=== PATIENT | male | born 1980 | race Caucasian/White ===

== ENCOUNTER 2021-10-17 06:43 | Day surgery (SDC) | payer BC ==
[~2021-10-17 06:43] MED LIST: Lactated Ringers 1,000 ML IV SCH
[2021-10-17] MEDS ORDERED: Propofol 200 MG/20 ML SDV ONE (07:20)
[2021-10-17] MEDS ORDERED: Lidocaine 2% 5 ML SDV ONE ×2 (07:20→07:25)
[2021-10-17] MEDS ORDERED: fentaNYL 100 MCG/2 ML SDV ONE (07:21)
== END 2021-10-17 08:45 | disposition home or self-care (01) ==
LOC: MW.SDS 06:43
PROVIDERS: ATTEND Surgery
DX: K29.70 Gastritis, unspecified, without bleeding (principal); K21.9 Gastro-esophageal reflux disease without esophagitis; I10 Essential (primary) hypertension; E83.52 Hypercalcemia; E87.6 Hypokalemia; G47.30 Sleep apnea, unspecified; F17.220 Nicotine dependence, chewing tobacco, uncomplicated; G47.10 Hypersomnia, unspecified; Z79.899 Other long term (current) drug therapy; Z90.49 Acquired absence of other specified parts of digestive tract; Z98.890 Other specified postprocedural states
CPT/HCPCS: 43239; J2704; J3010; J7120; 00731

== ENCOUNTER 2024-06-16 18:24 | Emergency (ER) | payer BC ==
[2024-06-16] MEDS: cloNIDine 0.1 MG Tab PO ONE (19:03)
== END 2024-06-16 19:38 | disposition home or self-care (01) ==
LOC: MW.ED 18:24
DX: I10 Essential (primary) hypertension (principal); Z87.891 Personal history of nicotine dependence; Z75.8 Other problems related to medical facilities and other health care
CPT/HCPCS: 99283; A9270